=== PATIENT | male | born 1935 | race Caucasian/White ===

== ENCOUNTER 2018-09-13 18:01 | Inpatient (IN) | payer MEDICARE, OTHER ==
[2018-09-13 18:55] LABS: #Basophils 0.1 thou/uL (0.0-0.2); #Eosinphils 0.1 thou/uL (0.0-0.7); #Monocytes 1.5 thou/uL (0.11-0.59); #Neutrophils 7.2 thou/uL (1.40-6.50); %Basophils 0.6 % (0.0-1.0); %Eosinophils 0.7 % (0.0-10.0); %Lymphocytes 10.5 % (21.0-51.0); %Monocytes 14.7 % (0.0-10.0); %Neutrophils 73.5 % (42.0-75.0); Hemoglobin 9.6 g/dL (14.0-18.0); Mean Corpuscular HGB CONC 30.8 g/dL (32.0-36.0); Mean Corpuscular Hemoglobin 26.8 pg (27.0-31.0); Mean Platelet Volume 8.8 fL (7.4-10.4); Platelet Count 358 thou/uL (130-400); RBC Distribution Width 18.1 % (11.5-14.5); Red Blood Cell (RBC) Count 3.57 mill/uL (4.70-6.10); White Blood Cell (WBC) Count 9.8 thou/uL (4.8-10.8)
--- NOTE | 2018-09-13 18:55 | RAD ---
PORTABLE CHEST: HISTORY: Pneumonia. Sepsis. Fever. COMPARISON: 11/20/2017 FINDINGS: Heart size is enlarged. There is minimal blunting to the right costophrenic angle, similar to the pr evious examination. There are also some left-sided pleural changes, also fairly similar to the prior exam. No overt interstitial edema change seen. IMPRESSION: 1. Cardiomegaly with suggestion of small bilateral pleural effusions, left larger than right. This could indicate a mild element of edema. No overt interstitial edema change seen. 2. Pleural changes appear fairly similar to a previous examination. POS: [facility]
[2018-09-13 19:16] LABS: ALT (SGPT) Less than 7 U/L (8-55); AST (SGOT) 11 U/L (5-34); Albumin 3.3 g/dL (3.4-4.8); Alkaline Phosphatase 73 U/L (40-150); Anion Gap 18 mmol/L (10-20); BUN (Urea Nitrogen) 22 mg/dL (8.4-25.7); Bilirubin, Total 0.3 mg/dL (0.2-1.2); CK (CPK) 97 U/L (30-200); Calc. Creatinine Clearance 0 mL/min (70-130); Calcium 8.2 mg/dL (7.8-10.44); Carbon Dioxide 25 mmol/L (23-31); Chloride 100 mmol/L (98-107); Estimated GFR-MDRD 14; Globulin 2.9 g/dL (2.4-3.5); Glucose 102 mg/dL (83-110); Lipase 29 U/L (8-78); Potassium 3.7 mmol/L (3.5-5.1); Protein, Total 6.2 g/dL (5.8-8.1); Sodium 139 mmol/L (136-145)
[2018-09-13 19:36] LABS: CKMB 2.1 ng/mL (0-6.6)
--- NOTE | 2018-09-13 19:47 | PDOC.FPRHP ---
- History of Present Illness Chief Complaint: vomiting, diarrhea, dizzy History of Present Illness: 83 yo M with PMH ESRD on HD T/Th/Sat, DM, hypothyroid, DM, CAD, CHF is transferred from [facility]. Patient reports 3 day history of watery diarrhea and vomiting this am. Decreased PO intake x2 days. After HD patient felt dizzy and was told to go to ED. Fever of 100.6 in other ED, none here. Reports cough associated with eating and weak voice- seen by neurology and diagnosed w/ Parkinsons. Has chronic sinus congestion, unchanged. Denies CP, SOB. 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. 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 Mosley in [place]. ED Course: clarissa luis, 2L @ outside ED KAT irizarry at our ED - Allergies/Adverse Reactions Allergies Allergy/AdvReac Type Severity Reaction Status Date / Time No Known Allergies Allergy Verified 01/19/16 10:09 - Home Medications Medication Instructions Recorded Confirmed Type Acetaminophen With Codeine 1 tablet PO Q6H PRN 03/21/17 03/21/17 History [Tylenol with Codeine #3] Aspirin [Aspir-Low] 81 mg PO DAILY 03/21/17 03/21/17 History Atorvastatin Calcium [Lipitor] 80 mg PO HS 03/21/17 03/21/17 History Brimonidine Tartrate [Alphagan P 1 drop EA EYE DAILY 03/21/17 03/21/17 History 0.1% Ophth Soln] Cholecalciferol (Vitamin D3) 1,000 unit PO DAILY 03/21/17 03/21/17 History [Vitamin D] Cyanocobalamin (Vitamin B-12) 5,000 mcg PO DAILY 03/21/17 03/21/17 History [Vitamin B12] Dorzolamide HCl/Timolol Maleat 1 drop EA EYE BID 03/21/17 03/21/17 History [Dorzolamide HCl/Timolol Maleate Ophth] Enalapril Maleate 20 mg PO BID 03/21/17 03/21/17 History Ezetimibe [Zetia] 10 mg PO HS 03/21/17 03/21/17 History Furosemide 40 mg PO BID 03/21/17 03/21/17 History Gabapentin 100 mg PO HS 03/21/17 03/21/17 History Insulin Glargine,Hum.Rec.Anlog 14 unit SQ QPM 03/21/17 03/21/17 History [Lantus Solostar] LORazepam [Lorazepam] 0.5 mg PO HS PRN 03/21/17 03/21/17 History Latanoprost [Xalatan 0.005% Ophth 1 drop R EYE HS 03/21/17 03/21/17 History Soln] Levothyroxine [Synthroid] 150 mcg PO DAILY 03/21/17 03/21/17 History Metoprolol Succinate 50 mg PO BID 03/21/17 03/21/17 History NIFEdipine [Procardia XL] 60 mg PO HS 03/21/17 03/21/17 History Sertraline HCl 25 mg PO BID 03/21/17 03/21/17 History Sevelamer Carbonate [Renvela] 800 mg PO TID-WM 03/21/17 03/21/17 History - History PMHx: ESRD on 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 Lives at home with his in [place]. Ambulates w/ walker. - Review of Systems General: reports: weight/appetite/sleep changes, fatigue. denies: fever/chills Eyes: denies: eye pain, vision changes ENT: reports: nasal congestion Respiratory: reports: cough, congestion. denies: shortness of breath Cardiovascular: reports: orthopnea. denies: chest pain Gastrointestinal: reports: nausea, vomiting, diarrhea, abdominal pain. denies: constipation, GI bleeding Genitourinary: reports: other (does not make urine). denies: dysuria, polyuria Skin: denies: rashes, lesions, jaundice Musculoskeletal: reports: pain. denies: arthritis/arthralgias Neurological: reports: weakness (shoulder weak- chronic). denies: numbness Psychological: denies: anxiety, depression - Vital signs BP: 162/65 HR: 75 RR: 21 Tmax: 98.9 Pox: 99%% on RA Wt: 82 kg - Physical Exam Constitutional: NAD, well developed HEENT: normocephalic and atraumatic Heart: RRR, pulses present (2+ in bilateral post tibial), other (2/6 systolic murmuc heard best in RUSB) Lungs: CTAB, good air movement, other (few crackles in BLL) Abdomen: soft, non-tender, bowel sounds present, other (rectal exam - enlarged prostate, no tenderness on exam) Musculoskeletal: normal structure, normal tone Neurological: no focal deficit, CN II-XII intact, normal sensation Skin: no rash/lesions, other (decreased turgor) Heme/Lymphatic: no unusual bruising or bleeding Psychiatric: normal mood and affect FMR H&P: Results - Labs Result Diagrams: 09/13/18 18:44 09/13/18 18:44 Lab results: WBC 9.8 thou/uL (4.8-10.8) 09/13/18 18:44 Hgb 9.6 g/dL (14.0-18.0) L 09/13/18 18:44 Hct 31.1 % (42.0-52.0) L 09/13/18 18:44 MCV 87.0 fL (78.0-98.0) 09/13/18 18:44 Plt Count 358 thou/uL (130-400) 09/13/18 18:44 Neutrophils % 73.5 % (42.0-75.0) 09/13/18 18:44 Sodium 139 mmol/L (136-145) 09/13/18 18:44 Potassium 3.7 mmol/L (3.5-5.1) 09/13/18 18:44 Chloride 100 mmol/L (98-107) 09/13/18 18:44 Carbon Dioxide 25 mmol/L (23-31) 09/13/18 18:44 BUN 22 mg/dL (8.4-25.7) 09/13/18 18:44 Creatinine 4.20 mg/dL (0.7-1.3) H 09/13/18 18:44 Glucose 102 mg/dL (83-110) 09/13/18 18:44 Lactic Acid 1.7 mmol/L (0.5-2.2) 09/13/18 18:44 Calcium 8.2 mg/dL (7.8-10.44) 09/13/18 18:44 Total Bilirubin 0.3 mg/dL (0.2-1.2) 09/13/18 18:44 AST 11 U/L (5-34) 09/13/18 18:44 ALT Less than 7 U/L (8-55) L 09/13/18 18:44 Alkaline Phosphatase 73 U/L (40-150) 09/13/18 18:44 Creatine Kinase 97 U/L (30-200) 09/13/18 18:44 CK-MB (CK-2) 2.1 ng/mL (0-6.6) 09/13/18 18:44 B-Natriuretic Peptide 3251.8 pg/mL (0-100) H 09/13/18 18:44 Serum Total Protein 6.2 g/dL (5.8-8.1) 09/13/18 18:44 Albumin 3.3 g/dL (3.4-4.8) L 09/13/18 18:44 Lipase 29 U/L (8-78) 09/13/18 18:44 FMR H&P: A/P - Problem List (1) Sepsis Current Visit: Yes Status: Acute Code(s): A41.9 - SEPSIS, UNSPECIFIED ORGANISM (2) Gastroenteritis Current Visit: Yes Status: Acute Code(s): K52.9 - NONINFECTIVE GASTROENTERITIS AND COLITIS, UNSPECIFIED (3) Elevated troponin Current Visit: Yes Status: Acute Code(s): R74.8 - ABNORMAL LEVELS OF OTHER SERUM ENZYMES (4) Parkinson disease Current Visit: Yes Status: Acute Code(s): G20 - PARKINSON'S DISEASE (5) Diabetes Current Visit: Yes Status: Acute Code(s): E11.9 - TYPE 2 DIABETES MELLITUS WITHOUT COMPLICATIONS (6) Hypothyroid Current Visit: Yes Status: Acute Code(s): E03.9 - HYPOTHYROIDISM, UNSPECIFIED (7) Glaucoma Current Visit: Yes Status: Acute Code(s): H40.9 - UNSPECIFIED GLAUCOMA (8) Neuropathy Current Visit: Yes Status: Acute Code(s): G62.9 - POLYNEUROPATHY, UNSPECIFIED (9) CAD (coronary artery disease) Current Visit: Yes Status: Acute Code(s): I25.10 - ATHSCL HEART DISEASE OF [place] CORONARY ARTERY W/O ANG PCTRS (10) CHF (congestive heart failure) Current Visit: Yes Status: Acute Code(s): I50.9 - HEART FAILURE, UNSPECIFIED (11) HLD (hyperlipidemia) Current Visit: Yes Status: Acute Code(s): E78.5 - HYPERLIPIDEMIA, UNSPECIFIED (12) ESRD (end stage renal disease) on dialysis Current Visit: No Status: Chronic Code(s): N18.6 - END STAGE RENAL DISEASE; Z99.2 - DEPENDENCE ON RENAL DIALYSIS - Plan Sepsis 2/2 viral gastroenteritis vs UTI - WBC 12.5 and fever 100.6 initially - Outside ED transferred for sepsis 2/2 pneumonia with LLL opacity on CXR. CXR here showed b/l small pleural effusions, no acute change - s/p vanc, rocephin, levaquin (09/13) - will not continue abx at this time as symptoms seem more consistent w/ gastroenteritis. Procalcitonin pending. - UA with small leuk esterase, mod bacteria, neg nitrite, mod blood. Pt denies making any urine d/t ESRD and could likely be chronically colonized. Denies penile pain, discharge and no concern for prostatitis. Pending urine culture at [facility] [place] ED. - s/p 2L in ED. VSS. Considering pt now tolerating PO intake, hx CHF and ESRD with crackles and small pleural effusions, will not continue fluids now Indeterminate troponin - 0.17, will continue to trend - EKG 1st degree AV block, inverted T waves V4-5 ESRD on HD T//Mon - Jl consulted from ED, appreciate recommendations - pending med rec Normocytic anemia - unknown baseline, Hgb 9.6 - likely 2/2 chronic disease DM - BG 102 - accuchecks, SSI for now - pending med rec CAD s/p stent - pending med rec CHF - BNP 3251 - pending med rec - will monitor for signs of volume overload, no respiratory distress at this time Glaucoma - pending med rec Hypothyroid - pending med rec MINA - uses CPAP at night Neuropathy - pending med rec Diet: renal/CC Ppx: Heparin Dispo: admit to medical inpatient FMR H&P: Upper Level - Pertinent history 83 yr old male with PMH of ESRD on dialysis T//S. For past 3 days, he has had diarrhea 3-4 x times a day and 6 x today. He vomited this morning. He has been having abdominal pain last few days but is better today. Loose watery stools, no blood. Patient had dialysis this morning. After that he felt dizzy. He reports a cough for "a while." He reports chronic nasal congestion. He looses his voice easily. Recently told he has parkinson disease. Does not urinate. No penile discharge. Has not been eating or drinking for 2 days. He recently had a heart monitor for 4 weeks but heart doctor said everything turned out okay. He takes about 13-14 meds but is coming tomorrow to bring them. - Pertinent findings Gen: no acute distress, Heart: RRR, 2/6 systolic murmur heard best at RUSB Lungs: Good air movement with BLL crackles, no rhonhi or rhales noted. Abd: bowel sounds present and normal active, non tender to palpation, no hepatosplenomegaly Ext: 2+ post tibial pulses, no edema Rectal: as documented above by Dr. Joiner, sacral decubitus wound covered by large bandage EKG: normal sinus rhythm with inverted T waves in V4-5. 1st degree AV block - Plan Date/Time: 09/13/181946 I, [Rea Styles], have evaluated this patient and agree with findings/plan as outlined by internal grinder resident. Pertinent changes/additions are listed here. Sepsis most likely 2/2 gastroenteritis -fever to 100.6 in outside ER and mild leukocytosis -good response to fluids and no longer septic appearing -UA with mod bacteria but in light of patient not making urine, will await urine culture before continuing further treatment -will obtain procalcitonin but CXR and exam does not suggest PNA -PRN zofran -stool studies obtained in outside ER -has received broad spectrum abx in outside ED, will DC for now and monitor Indeterminant Trop -no CP -inverted T waves in V4-[address] segment changes -most likley poor clearance with ESRD CHF -elevated BNP -likely some fluid overload 2/2 fluid bolus but does not appear to be in acute exacerbation. ESRD on dialysis -T//S -Dr. Parikh aware of patient Anemia -chronic, likely 2/2 ESRD hypothyroidism -cont home med when obtained. HLD -cont home meds CAD s/p 1 stent please see note above for other chronic problems PCP: [facility] status: FULL Dispo: [place] 2-3 days.
[2018-09-13] MEDS ORDERED: Aspirin Chewable 81 MG TAB ONE (19:53)
[2018-09-13 22:08] LABS: Troponin I 0.156 ng/mL (< 0.028)
[2018-09-14 00:23] VITALS: BMI 25.2
[2018-09-14] MEDS ORDERED: Dextrose 50% Abboject 50 ML SYRINGE SLOW IVP PRN (00:36)
[2018-09-14] MEDS ORDERED: Acetaminophen 325 MG TAB PO PRN (00:36)
[2018-09-14] MEDS ORDERED: Ondansetron ODT 4 MG TAB PO PRN (00:36)
[2018-09-14] MEDS ORDERED: Dextrose 5% in Water 1,000 ML IV PRN (00:36)
[2018-09-14 01:01] LABS: Troponin I 0.162 ng/mL (< 0.028)
--- NOTE | 2018-09-14 01:03 | CON ---
DATE OF CONSULTATION: REASON FOR CONSULTATION: Stage 6 chronic kidney disease, on maintenance hemodialysis. HISTORY OF PRESENT ILLNESS: This is a very pleasant 83-year-old gentleman who complained of weakness after dialysis. The patient went to the local emergency room, where he was found to have pneumonia and possibly complicated UTI. The patient at this time denies any headache, numbness, tingling. Complains of weakness, but no headache, numbness, or tingling. PAST MEDICAL HISTORY: Hypertension, end-stage kidney disease, AV fistula, tunneled dialysis catheter, anemia, secondary hyperparathyroidism, history of coronary artery disease and stents. SOCIAL HISTORY: No alcohol or drug use. MEDICATIONS: Home medication list reviewed. Hospital medication list reviewed. ALLERGIES: REVIEWED. REVIEW OF SYSTEMS: A 15-point review of system was performed and was negative except for positives noted above. NECK: No swelling or lumps. NOSE: No epistaxis or discharge. EYES: No diplopia or pain. MUSCULOSKELETAL: No joint pain. NEUROPSYCHIATIC SYSTEMS: No suicidal ideation. No ideation. SKIN: Denies any rash or ulcer. CONSTITUTIONAL: No fever or chills. PHYSICAL EXAMINATION: GENERAL: The patient is awake and alert. VITAL SIGNS: Afebrile. Pulse 70, breathing 16, blood pressure reviewed. GENERAL APPEARANCE AND MENTAL STATUS: Fair. HEAD/NECK: Normocephalic. Atraumatic. EYES: EOMI. No deformity. EARS: Clear. No ulcers. NOSE: Intact. No lesions. MOUTH: Clear. No discharge. THROAT: Clear. No exudate. LUNGS: Clear. No crackles. CARDIAC: S1, S2. No rub. ABDOMEN: Benign. Bowel sounds positive. GENITALIA/RECTUM: Berg absent. NEUROLOGICAL: Alert and motor intact. LABORATORY DATA: Labs reviewed. ASSESSMENT AND PLAN: 1. Stage 6 chronic kidney disease. No indication for dialysis. 2. Hypertension, stable. 3. Anemia, stable. 4. Pneumonia and sepsis, management per primary team. Job ID: [id number]
[2018-09-14] MEDS ORDERED: Ondansetron PF 4 MG/2 ML Vial IVP PRN (03:04)
--- NOTE | 2018-09-14 06:43 | PDOC.FM ---
- Subjective Subjective: Reports episode of Vomiting at 1 am this morning. Feels better now. 6 episodes of diarrhea yesterday but none since admission. Denies abdominal pain although tender on palpation RLQ. Good appetite this morning. His is bring his meds. - Objective MAR Reviewed: Yes Vital Signs & Weight: Vital Signs (12 hours) Temp Pulse Resp BP Pulse Ox 09/14/18 00:36 95 09/14/18 00:21 98.0 F 76 18 150/64 H 95 Weight Weight 75.432 kg I&O: 09/12/18 09/13/18 09/14/18 06:59 06:59 06:59 Intake Total 512 Output Total 600 Balance -88 Result Diagrams: 09/14/18 09:00 09/14/18 09:00 Phys Exam - Physical Examination Constitutional: NAD Dry MM Neck: supple Respiratory: no wheezing, clear to auscultation bilateral Cardiovascular: RRR 2/6 systolic murmuc Gastrointestinal: soft, non-tender, positive bowel sounds RLQ tenderness Musculoskeletal: no edema, pulses present Neurological: non-focal Psychiatric: normal affect, A&O x 3 Skin: cap refill <2 seconds Dx/Plan (1) Sepsis Code(s): A41.9 - SEPSIS, UNSPECIFIED ORGANISM Status: Acute (2) Insulin dependent diabetes mellitus Code(s): E11.9 - TYPE 2 DIABETES MELLITUS WITHOUT COMPLICATIONS; Z79.4 - NETBACKUP ENGINEER (CURRENT) USE OF INSULIN Status: Chronic (3) CAD (coronary artery disease) Code(s): I25.10 - ATHSCL HEART DISEASE OF [place] CORONARY ARTERY W/O ANG PCTRS Status: Chronic (4) CHF (congestive heart failure) Code(s): I50.9 - HEART FAILURE, UNSPECIFIED Status: Chronic (5) Elevated troponin Code(s): R74.8 - ABNORMAL LEVELS OF OTHER SERUM ENZYMES Status: Acute (6) Gastroenteritis Code(s): K52.9 - NONINFECTIVE GASTROENTERITIS AND COLITIS, UNSPECIFIED Status : Acute (7) Glaucoma Code(s): H40.9 - UNSPECIFIED GLAUCOMA Status: Chronic (8) HLD (hyperlipidemia) Code(s): E78.5 - HYPERLIPIDEMIA, UNSPECIFIED Status: Chronic (9) Hypothyroid Code(s): E03.9 - HYPOTHYROIDISM, UNSPECIFIED Status: Chronic (10) Neuropathy Code(s): G62.9 - POLYNEUROPATHY, UNSPECIFIED Status: Chronic (11) Parkinson disease Code(s): G20 - PARKINSON'S DISEASE Status: Chronic (12) ESRD (end stage renal disease) on dialysis Code(s): N18.6 - END STAGE RENAL DISEASE; Z99.2 - DEPENDENCE ON RENAL DIALYSIS Status: Chronic (13) Normocytic anemia Code(s): D64.9 - ANEMIA, UNSPECIFIED Status: Chronic - Plan Plan: Sepsis 2/2 viral gastroenteritis vs UTI - Initial leukocytosis 12.5, febrile 100.6 - CXR: b/l small pleural effusions - Flu neg - s/p vanc, rocephin, levaquin and 2L NS (09/13) for concern for pneumonia - Antibiotics not continued as symptoms c/w viral gastroenteritis - Procalcitonin pending - Urine culture pending from [facility] Diarrhea - Stools studies including C diff ordered Elevated troponin - 0.17-> 0.156-> 0.162 - EKG 1st degree AV block, inverted T waves V4-5 ESRD on HD T//Sat - ESRD 2/2 "RA medication" on HD 3 years - Dr. Barton (pt see's outpt) consulted from ED, appreciate recs CHF - BNP 3251, no evidence of fluid overload on exam - Continue home meds Normocytic anemia - unknown baseline, Hgb 9.6 - likely 2/2 chronic disease DMII - Continue home Lantus 14U - accuchecks ACHS - SSI with hypoglycemic protocol - CC diet CAD s/p stent - Sees Dr. Ramirez, cardiology outpt at [facility]. - Continue home meds Parkinsons - Continue home meds Glaucoma - Continue home meds Hypothyroid - Continue home Synthroid MINA - Uses CPAP at night Neuropathy - Continue home meds Code Status: DVT ppx: Heparin PCP: Dr Mosley ([place]) Addendum - Attending - Attending Attestation Date/Time: 09/14/18 [id number] I personally evaluated the patient and discussed the management with Dr. Hadley I agree with the History, Examination, Assessment and Plan documented above with any addition or exceptions noted below. Expectant management off ABX check stool c. dificile and culture. for inpt HD in am
[2018-09-14] MEDS: Heparin 5,000 UNITS/ML VIAL SC SCH ×3 (09:08→22:52)
[2018-09-14 09:15] LABS: #Eosinphils 0.2 thou/uL (0.0-0.7); #Lymphocytes 0.7 thou/uL (1.20-3.40); #Monocytes 0.8 thou/uL (0.11-0.59); #Neutrophils 4.9 thou/uL (1.40-6.50); %Basophils 0.2 % (0.0-1.0); %Eosinophils 3.4 % (0.0-10.0); %Lymphocytes 10.5 % (21.0-51.0); %Monocytes 11.8 % (0.0-10.0); %Neutrophils 74.2 % (42.0-75.0); Hemoglobin 8.8 g/dL (14.0-18.0); Mean Corpuscular HGB CONC 30.4 g/dL (32.0-36.0); Mean Corpuscular Hemoglobin 26.4 pg (27.0-31.0); Mean Corpuscular Volume 86.6 fL (78.0-98.0); Mean Platelet Volume 8.4 fL (7.4-10.4); Platelet Count 355 thou/uL (130-400); RBC Distribution Width 17.9 % (11.5-14.5); Red Blood Cell (RBC) Count 3.35 mill/uL (4.70-6.10); White Blood Cell (WBC) Count 6.6 thou/uL (4.8-10.8)
[2018-09-14 09:30] LABS: Anion Gap 16 mmol/L (10-20); BUN (Urea Nitrogen) 32 mg/dL (8.4-25.7); Calc. Creatinine Clearance 12 mL/min (70-130); Carbon Dioxide 24 mmol/L (23-31); Chloride 100 mmol/L (98-107); Estimated GFR-MDRD 10; Glucose 172 mg/dL (83-110); Potassium 4.2 mmol/L (3.5-5.1); Sodium 136 mmol/L (136-145)
--- NOTE | 2018-09-14 09:33 | PRG ---
DATE OF SERVICE: 09/14/2018 SUBJECTIVE: An 83-year-old gentleman, being seen for end-stage kidney disease. The patient denied any nausea or chest pain, but had an episode of vomiting earlier in the morning. OBJECTIVE: CONSTITUTIONAL: The patient is awake and alert. VITAL SIGNS: Pulse 72, breathing 16, blood pressure 151/73. GENERAL APPEARANCE AND MENTAL STATUS: Fair. HEAD/NECK: Normocephalic. Atraumatic. EYES: EOMI. No deformity. EARS: Clear. No ulcers. NOSE: Intact. No lesions. MOUTH: Clear. No discharge. THROAT: Clear. No exudate. LUNGS: Clear. No crackles. CARDIAC: S1, S2. No rub. ABDOMEN: Benign. Bowel sounds positive. GENITALIA/RECTUM: Berg absent. BACK/EXTREMITIES: Edema 0+. NEUROLOGICAL: Alert and motor intact. SKIN: LYMPHATICS: LABORATORY STUDIES: Labs show hemoglobin 9.6. ASSESSMENT AND PLAN: 1. Stage 6 chronic kidney disease. Plan dialysis tomorrow. 2. Hypertension, stable. 3. Anemia, stable. 4. Medication based on GFR appropriate. Job ID: [id number]
[2018-09-14] MEDS ORDERED: Lorazepam 0.5 MG TAB PO PRN (13:02)
[2018-09-14] MEDS ORDERED: cloNIDine 0.1 MG TAB PO PRN (13:02)
[2018-09-14] MEDS ORDERED: Acetaminophen/Codeine 30-300mg Tablet PO PRN (13:02)
[2018-09-14] MEDS: HumaLOG 300 UNITS/3 ML VIAL SC PRN (13:14)
[2018-09-14] MEDS ORDERED: LEVODOPA PO SCH (15:00)
[2018-09-14] MEDS ORDERED: CARBIDOPA PO SCH (15:00)
[2018-09-14] MEDS ORDERED: INSULIN GLARGINE HUM REC ANLOG 14 UNIT SQ SCH (16:00)
[2018-09-14] MEDS: Sevelamer Carbonate 800 MG TAB PO SCH (17:26)
[2018-09-14] MEDS ORDERED: Atorvastatin Calcium 40 MG TAB PO SCH (21:00)
[2018-09-14] MEDS ORDERED: Non-Formulary Item 1 EACH (Atorvastatin Calcium [Lipitor] 80 MG) PO SCH (21:00)
[2018-09-14] MEDS ORDERED: NIFEdipine XL 60 MG TAB PO SCH (21:00)
[2018-09-14] MEDS ORDERED: Non-Formulary Item 1 EACH (Dorzolamide Hcl/Timolol Maleat [Dorzolamide Hcl/Timolol Maleat EA EYE SCH (21:00)
[2018-09-14] MEDS ORDERED: Latanoprost 0.005% Ophth Soln 2.5 ml Bottle EA EYE SCH (21:00)
[2018-09-14] MEDS ORDERED: Insulin Glargine 14 UNITS in Pre-Filled Syringe 1 EACH SC SCH (21:00)
[2018-09-14] MEDS: Furosemide 40 MG TAB PO SCH (22:52)
[2018-09-14] MEDS: RYTARY PO SCH (22:53)
[2018-09-14] MEDS: DorzolamidE/Timolol 2%/0.5% Ophth Soln 10 ml Bottle EA EYE SCH (23:45)
--- NOTE | 2018-09-15 06:13 | PDOC.FM ---
- Subjective Subjective: Feeling well. No overnight events. Nausea/vomiting and diarrhea have all resolved. He has no complaints. - Objective MAR Reviewed: Yes Vital Signs & Weight: Vital Signs (12 hours) Temp Pulse Resp BP BP Pulse Ox 09/15/18 04:00 98 F 62 20 121/55 L 94 L 09/15/18 00:35 182/73 H 09/15/18 00:00 98.7 F 72 20 182/73 H 97 09/14/18 23:15 96 09/14/18 22:51 77 179/74 H 09/14/18 19:53 98.6 F 77 20 179/74 H 92 L Weight Admit Weight 75.432 kg Weight 75.432 kg I&O: 09/13/18 09/14/18 09/15/18 06:59 06:59 06:59 Intake Total 512 650 Output Total 600 Balance -88 650 Result Diagrams: 09/15/18 06:52 09/15/18 06:52 Phys Exam - Physical Examination Constitutional: NAD HEENT: moist MMs Neck: supple Respiratory: no wheezing, clear to auscultation bilateral Cardiovascular: RRR systolic murmur Gastrointestinal: soft, non-tender, positive bowel sounds Musculoskeletal: no edema, pulses present Neurological: non-focal, moves all 4 limbs Psychiatric: normal affect, A&O x 3 Skin: normal turgor Dx/Plan (1) Sepsis Code(s): A41.9 - SEPSIS, UNSPECIFIED ORGANISM Status: Acute (2) Insulin dependent diabetes mellitus Code(s): E11.9 - TYPE 2 DIABETES MELLITUS WITHOUT COMPLICATIONS; Z79.4 - SENIOR LIVING (CURRENT) USE OF INSULIN Status: Chronic (3) CAD (coronary artery disease) Code(s): I25.10 - ATHSCL HEART DISEASE OF [place] CORONARY ARTERY W/O ANG PCTRS Status: Chronic (4) CHF (congestive heart failure) Code(s): I50.9 - HEART FAILURE, UNSPECIFIED Status: Chronic (5) Elevated troponin Code(s): R74.8 - ABNORMAL LEVELS OF OTHER SERUM ENZYMES Status: Acute (6) Gastroenteritis Code(s): K52.9 - NONINFECTIVE GASTROENTERITIS AND COLITIS, UNSPECIFIED Status : Acute (7) Glaucoma Code(s): H40.9 - UNSPECIFIED GLAUCOMA Status: Chronic (8) HLD (hyperlipidemia) Code(s): E78.5 - HYPERLIPIDEMIA, UNSPECIFIED Status: Chronic (9) Hypothyroid Code(s): E03.9 - HYPOTHYROIDISM, UNSPECIFIED Status: Chronic (10) Neuropathy Code(s): G62.9 - POLYNEUROPATHY, UNSPECIFIED Status: Chronic (11) Parkinson disease Code(s): G20 - PARKINSON'S DISEASE Status: Chronic (12) ESRD (end stage renal disease) on dialysis Code(s): N18.6 - END STAGE RENAL DISEASE; Z99.2 - DEPENDENCE ON RENAL DIALYSIS Status: Chronic (13) Normocytic anemia Code(s): D64.9 - ANEMIA, UNSPECIFIED Status: Chronic - Plan Plan: Sepsis 2/2 viral gastroenteritis - Initial leukocytosis 12.5, febrile 100.6 - CXR: b/l small pleural effusions - Flu neg - s/p vanc, rocephin, levaquin and 2L NS (09/13) for concern for pneumonia. Lungs clear to ausc. no cough - Antibiotics not continued as symptoms c/w viral gastroenteritis - Urine culture not obtained when called [facility] for results Diarrhea - Stool cultures neg for pathogens at [facility] by PCR Elevated troponin - 0.17-> 0.156-> 0.162 - EKG 1st degree AV block, inverted T waves V4-5 ESRD on HD T//Mon - ESRD 2/2 "RA medication" on HD 3 years - Dr. Barton (pt see's outpt) consulted from ED, appreciate recs - D/c to day after discharge CHF - BNP 3251, no evidence of fluid overload on exam - Continue home meds Normocytic anemia - unknown baseline, Hgb 9.6 - likely 2/2 chronic disease DMII - Continue home Lantus 14U - accuchecks ACHS - SSI with hypoglycemic protocol - CC diet CAD s/p stent - Sees Dr. Ramirez, cardiology outpt at [facility]. - Continue home meds Parkinsons - Continue home meds Glaucoma - Continue home meds Hypothyroid - Continue home Synthroid MINA - Uses CPAP at night Neuropathy - Continue home meds Code Status: DVT ppx: Heparin PCP: Dr Mosley ([place]) Addendum - Attending - Attending Attestation Date/Time: 09/15/18 [id number] I personally evaluated the patient and discussed the management with Dr. Hadley I agree with the History, Examination, Assessment and Plan documented above with any addition or exceptions noted below.Tolerating po well no loose bm no C.dificile testing will have inpt diaylysis today and d/c later pending continued stable VS and ability take po well without N/V/D
[2018-09-15 07:30] LABS: #Eosinphils 0.4 thou/uL (0.0-0.7); #Lymphocytes 0.9 thou/uL (1.20-3.40); #Monocytes 0.8 thou/uL (0.11-0.59); #Neutrophils 5.8 thou/uL (1.40-6.50); %Basophils 0.4 % (0.0-1.0); %Eosinophils 5.5 % (0.0-10.0); %Lymphocytes 11.3 % (21.0-51.0); %Neutrophils 72.9 % (42.0-75.0); Mean Corpuscular HGB CONC 30.5 g/dL (32.0-36.0); Mean Corpuscular Hemoglobin 26.9 pg (27.0-31.0); Mean Corpuscular Volume 88.3 fL (78.0-98.0); Mean Platelet Volume 8.6 fL (7.4-10.4); Platelet Count 350 thou/uL (130-400); Red Blood Cell (RBC) Count 2.97 mill/uL (4.70-6.10)
[2018-09-15 07:46] LABS: Anion Gap 20 mmol/L (10-20); BUN (Urea Nitrogen) 44 mg/dL (8.4-25.7); Calc. Creatinine Clearance 9 mL/min (70-130); Calcium 7.8 mg/dL (7.8-10.44); Carbon Dioxide 21 mmol/L (23-31); Chloride 99 mmol/L (98-107); Estimated GFR-MDRD 8; Glucose 91 mg/dL (83-110); Potassium 4.4 mmol/L (3.5-5.1); Sodium 136 mmol/L (136-145)
[2018-09-15] MEDS: RYTARY PO SCH ×2 (08:33→14:13)
[2018-09-15] MEDS: Furosemide 40 MG TAB PO SCH (08:34)
[2018-09-15] MEDS: Sevelamer Carbonate 800 MG TAB PO SCH ×3 (08:34→19:02)
[2018-09-15] MEDS: Heparin 5,000 UNITS/ML VIAL SC SCH ×2 (08:34→14:13)
[2018-09-15] MEDS: DorzolamidE/Timolol 2%/0.5% Ophth Soln 10 ml Bottle EA EYE SCH (08:35)
[2018-09-15] MEDS ORDERED: Non-Formulary Item 1 EACH (Cyanocobalamin (Vitamin B-12) [Vitamin B12] 500 MCG) PO SCH (09:00)
[2018-09-15] MEDS ORDERED: Non-Formulary Item 1 EACH (Cholecalciferol (Vitamin D3) [Vitamin D] 1,000 UNIT) PO SCH (09:00)
[2018-09-15] MEDS ORDERED: Brimonidine Tartrate 0.2% Ophth Soln 5 ml Bottle EA EYE SCH (09:00)
[2018-09-15] MEDS ORDERED: Non-Formulary Item 1 EACH (Brimonidine Tartrate [Alphagan P 0.1% Ophth Soln] 1 DROP) EA EYE SCH (09:00)
[2018-09-15] MEDS ORDERED: Cyanocobalamin (Vitamin B-12) 1,000 MCG TAB PO SCH (09:00)
[2018-09-15] MEDS ORDERED: buPROPion 75 MG TAB PO SCH (09:00)
[2018-09-15] MEDS ORDERED: Aspirin 81 mg Enteric Coated Tablet PO SCH (09:00)
[2018-09-15] MEDS ORDERED: Levothyroxine 150 MCG TAB PO SCH (09:00)
[2018-09-15] MEDS: HumaLOG 300 UNITS/3 ML VIAL SC PRN (11:04)
--- NOTE | 2018-09-15 13:15 | PRG ---
DATE OF SERVICE: 09/15/2018 SUBJECTIVE: An 83-year-old gentleman, being seen for end-stage kidney disease. The patient denies nausea, vomiting, or chest pain. OBJECTIVE: See above. CONSTITUTIONAL: Awake, alert, in no acute distress. VITAL SIGNS: Afebrile. Pulse 59, breathing 16, blood pressure 120/52. GENERAL APPEARANCE AND MENTAL STATUS: Fair. HEAD/NECK: Normocephalic. Atraumatic. EYES: EOMI. No deformity. EARS: Clear. No ulcers. NOSE: Intact. No lesions. MOUTH: Clear. No discharge. THROAT: Clear. No exudate. LUNGS: Clear. No crackles. CARDIAC: S1, S2. No rub. ABDOMEN: Benign. Bowel sounds positive. GENITALIA/RECTUM: Berg absent. BACK/EXTREMITIES: Edema 0+. NEUROLOGICAL: Alert and motor intact. SKIN: LYMPHATICS: LABORATORY DATA: Labs show hemoglobin 8, creatinine 7.05. ASSESSMENT AND PLAN: 1. Stage 6 chronic kidney disease, stable. 2. Hypertension, stable. 3. Anemia, stable. 4. Medication based on GFR appropriate. Job ID: [id number]
[2018-09-15 19:05] VITALS: BP 164/66; TEMP 98.7
--- NOTE | 2018-09-17 12:49 | DIS ---
DATE OF ADMISSION: 09/13/2018 DATE OF DISCHARGE: 09/15/2018 RESIDENT: Clara Hadley MD, PGY-1 ADMITTING ATTENDING: Lm Rene MD DISCHARGE ATTENDING: Henrique Champion MD CONSULT: Nephrology, Dr. Barton. PROCEDURES: Chest x-ray, cardiomegaly with suggestion of small bilateral pleural effusions, left larger than right. This could indicate a mild element of edema. No overt interstitial edema change seen. Pleural changes appear fairly similar to previous exam. PRIMARY DIAGNOSES: 1. Sepsis secondary to viral gastroenteritis. 2. Diarrhea. SECONDARY DIAGNOSES: 1. Diarrhea. 2. Elevated troponin. 3. End-stage renal disease, on hemodialysis Monday, , and Monday. 4. Congestive heart failure. 5. Normocytic anemia. 6. Type 2 diabetes. 7. Coronary artery disease, status post stent. 8. Parkinson's. 9. Glaucoma. 10. Hypothyroidism. 11. Obstructive sleep apnea. 12. Neuropathy. DISCHARGE MEDICATIONS: 1. Tylenol No. 3 one tab q.6 hours p.r.n. 2. Aspirin 81 mg daily. 3. Atorvastatin 80 mg at bedtime. 4. Alphagan 1 drop each eye daily. 5. Bupropion 75 mg daily. 6. Carbidopa levodopa one cap p.o. t.i.d. 7. Vitamin D3 of 1000 units daily. 8. Clonidine 0.1 mg t.i.d. p.r.n. 9. Vitamin B12 of 500 mcg daily. 10. Dorzolamide hydrochloride-timolol maleate one drop each eye b.i.d. 11. Furosemide 40 mg b.i.d. 12. Insulin 14 units at bedtime. 13. Latanoprost one drop each eye at bedtime. 14. Levothyroxine 150 mcg daily. 15. Lorazepam 0.5 mg at bedtime. 16. Nifedipine 60 mg at bedtime. 17. Zofran 4 mg q.6 hours. 18. Renvela 800 mg t.i.d. Discontinued medications: None. HISTORY OF PRESENT ILLNESS/HOSPITAL COURSE: Mr. Holder is an 83-year-old male, who presented to the [facility] Emergency Room for 3 days of diarrhea and vomiting and decreased p.o. intake. After hemodialysis, the patient was felt dizzy and recommended to go to the ED. He had a fever of 100.6. White blood cell count of 12.5. Outside ED transferred the patient for sepsis secondary to suspicion of pneumonia on chest x-ray and started him on vancomycin, Rocephin, and Levaquin. His UA had small leukocyte esterase, moderate bacteria, negative nitrite, and moderate blood. He has end-stage renal disease secondary to a medicine he took years ago. He has been on hemodialysis for 3 years and makes no urine. This urine by straight cath has likely been in his bladder for a very long time. His textiles and clothing teacher is Dr. Ramirez at [facility] and assurance senior manager insurance is Dr. Barton. Chest x-ray here at [facility] showed bilateral small pleural effusions unchanged from the prior exam. His flu was negative. Procalcitonin was elevated, but he has end-stage renal disease, so this is not of use in evaluating for infection. His lungs are clear to auscultation and he did not have a cough, therefore antibiotics were not continued as his symptoms were most consistent with viral gastroenteritis. Stool culture was not obtained due to constipation here in the hospital since it had resolved at admission. Urine culture was also not obtained. When Adrian Olivas and [facility] recalled for urine culture results, they had not done a culture of his urine sample. The patient's symptoms resolved prior to discharge. He had an elevated troponin on admission of 0.17, 0.156, 0.162. His EKG showed first-degree AV block and inverted T-waves in V4, V5. The patient did not have chest pain. EKG was unchanged. His end-stage renal disease was managed with inpatient dialysis prior to discharge on his schedule today. He has a history of CHF. BNP at admission was 3251. He had no evidence of fluid overload on exam. He is continued on his home medications. Normocytic anemia of unknown baseline. He had a hemoglobin of 9.6, which is likely secondary to chronic kidney disease. He has type 2 diabetes managed with his home Lantus insulin 14 units. Coronary artery disease, Parkinson's, glaucoma, hypothyroidism, obstructive sleep apnea, and neuropathy were managed with home medications and stable throughout his hospitalization. DISPOSITION: Stable. DISCHARGE INSTRUCTIONS: 1. Location: Home. 2. Diet: Heart healthy, consistent carb. 3. Activity: No restrictions. 4. Followup: Follow up with Dr. PHILIPPE Colon in [place]. Job ID: [id number]
== END 2018-09-15 19:13 | disposition home or self-care (01) | DRG 871 ==
LOC: ERS 18:01 → T4-B 23:37
PROVIDERS: ADMIT Family Medicine; ATTEND Family Medicine
PROC: 5A1D70Z Performance of Urinary Filtration, Intermittent, Less than 6 Hours Per Day (ICD-10-PCS; principal; 2018-09-15)
DX: A41.9 Sepsis, unspecified organism (principal); N18.6 End stage renal disease; I13.2 Hypertensive heart and chronic kidney disease with heart failure and with stage 5 chronic kidney disease, or end stage renal disease; E11.22 Type 2 diabetes mellitus with diabetic chronic kidney disease; E03.9 Hypothyroidism, unspecified; I25.10 Atherosclerotic heart disease of native coronary artery without angina pectoris; I50.9 Heart failure, unspecified; G20 Parkinson's disease; H40.9 Unspecified glaucoma; E11.40 Type 2 diabetes mellitus with diabetic neuropathy, unspecified; E78.5 Hyperlipidemia, unspecified; G47.33 Obstructive sleep apnea (adult) (pediatric); R74.8 Abnormal levels of other serum enzymes; A08.4 Viral intestinal infection, unspecified; K59.00 Constipation, unspecified; I44.0 Atrioventricular block, first degree; D63.1 Anemia in chronic kidney disease; Z96.651 Presence of right artificial knee joint; Z96.662 Presence of left artificial ankle joint; Z99.2 Dependence on renal dialysis; Z98.61 Coronary angioplasty status; Z98.49 Cataract extraction status, unspecified eye; Z79.4 Long term (current) use of insulin
CPT/HCPCS: 36415; 36416; 71045; 80048; 80053; 82550; 82553; 83605; 83690; 83880; 84145; 84484; 85025; 87040; 87804; 93005; 96365; 96366; J1644; J1825; J1956; J2405